=== PATIENT | female | born 1960 | race Caucasian/White ===

== ENCOUNTER 2017-03-16 08:04 | Inpatient (IN) ==
[2017-03-16] MEDS ORDERED: SODIUM CHLORIDE 0.9% 1,000 ML IV STA (08:36)
[2017-03-16] MEDS ORDERED: PANTOPRAZOLE 40 MG VIAL IV STA (08:36)
[2017-03-16 08:59] LABS: Basophils % 0.1 % (0.0-0.8); Eosinophils % 0.2 % (0.00-10.9); Hematocrit 27.5 VOL% (35.7-47.0); Hemoglobin 9.3 GM/DL (12.0-16.0); Immature Granulocytes % 0.6 %; Immature Granulocytes Absolute 0.06 #; Mean Corpuscular HGB Conc 33.8 GM/DL (32-36); Mean Corpuscular Hemoglobin 33 PG (27-34); Mean Corpuscular Volume 96.5 FL (87-102); Mean Platelet Volume 10.9 FL (9.6-12.0); Monocytes # 0.5 10*3/uL (0.11-0.8); Monocytes % 4.7 % (1.7-12.7); Neutrophils # 8.1 10*3/uL (1.4-7.4); Neutrophils % 84.4 % (38.7-73.9); Platelet Count 178 T/CUMM (130-400); Red Blood Count 2.85 MC/CUMM (3.8-5.5); White Blood Count 9.6 T/CUMM (4-12)
--- NOTE | 2017-03-16 09:12 | XRay Report ---
History: Abdominal pain Date: 03/16/2017 Study: Flat and decubitus abdomen Comparison exam: No previous There is no evidence of pneumoperitoneum. The bowel gas pattern is nonobstructive without gross mass lesion. Some scattered stool and air are noted in the normal caliber colon. There are at least 2 small less than 3 mm calcifications overlying the upper right renal shadow which could represent small renal stones. There is moderate degenerative disc narrowing with vacuum disc phenomenon at L4-L5 and L5-S1. Impression: Suspect right nephrolithiasis Degenerative disease lumbar spine No definite acute process otherwise PROCEDURE INTERPRETED AT [facility] DEPARTMENT OF RADIOLOGY Final Report Signed by: Dr. Peggy Demarco
[2017-03-16] MEDS ORDERED: PANTOPRAZOLE 40 MG VIAL IV ONE (09:21)
[2017-03-16 09:31] LABS: Alanine Aminotransferase 19 U/L (13-56); Albumin 2.9 G/DL (3.4-5.0); Alkaline Phosphatase 99 U/L (45-117); Aspartate Amino Transferase 12 U/L (0-37); Bilirubin,Total < 0.39 MG/DL (0.2-1.0); Blood Urea Nitrogen 21 MG/DL (7-18); Calcium 8.1 MG/DL (8.5-10.1); Total Protein 5.8 G/DL (6.4-8.3)
[2017-03-16 09:32] LABS: Glucose 107 MG/DL (74-106); Potassium 3.6 MMOL/L (3.5-5.1); Sodium 143 MMOL/L (136-145)
--- NOTE | 2017-03-16 09:36 | EKG Report ---
Stationary ECG Study [facility] ER Test Date: 03/16/2017 9:34:42 AM Pat Name: HARESH GRIFFIN Department: Room: Gender: F Bureau Chief: : 1960 Requested by: Noel Blackburn Order Number: [id number] Reading MD: ADRIANNE CHEW Intervals Mobile Rate: 79 P: 29 GA: 101 QRS: 33 QRSD: 86 T: -22 QT: 392 QTc: 427 Interpretive Statements SINUS RHYTHM WITH SHORT GA INTERVAL MINIMAL VOLTAGE CRITERIA FOR LVH, CONSIDER NORMAL VARIANT PROBABLE INFERIOR MYOCARDIAL INFARCTION, OF INDETERMINATE AGE Electronically Signed On 03-16-17 14:09:41 CDT by ADRIANNE CHEW [id number]
--- NOTE | 2017-03-16 09:54 | Emergency Department Note ---
Pavithra Swift Emily, am scribing for, and in the presence of, Noel Delacruz MD 08:37. Jayme Swift Phillip K, MD, personally performed the services described in this documentation, ascribed by Lurdes Arshad in my presence, and it is both accurate and complete 954 . Arrival - Arrival Chief Complaint: GI Bleed/Rectal ED Nursing Triage Note: Brought in by EMS c/o vomiting bright red blood-onset 0615 this morning. +nausea. Mode of Arrival: Stretcher Limitations: No Limitations Source: Patient, Significant other Time Seen by Provider: 03/16/17 08:12 - History of Present Illness HPI Narrative: Pt is a 57 y/o female who came to ED with c/o hematemesis trhat started at 6am this morning. Pt notes having nausea and some mid epigastric pain. Pt reports having melena about 2 days ago and emesis was bright red this morning. Pt takes Mobic of 7.5mg once daily, aspirin, and occasional ibuprofen, but denies BC powders. Pt denies hx of ulcers. PMHx of esophagus stretching in 2004. Onset (ago): hour(s) Consistency: constant Severity: moderate Severity scale (1-10): 5 Quality: other (vomiting) Date of Last Menstrual Period: menopause Allergies/Adverse Reactions: Allergies Allergy/AdvReac Type Severity Reaction Status Date / Time codeine Allergy Unknown/Unable Verified 03/16/17 08:15 to obtain Review of System - Review of System 12 point system: reviewed and no additional remarkable complaints except as stated - Review of System Constitutional: Absent: chills, fever, weakness Respiratory: Absent: respiratory distress Cardiovascular: Absent: chest pain, syncope Gastrointestinal: Present: abdominal pain (mild epigastric), nausea, hematemesis (bright red), melena Musculoskeletal: Absent: arm pain Skin: Absent: rash Neurological: Absent: headache Medical,Surgical,& Family Hx - Medical History Endocrine: History of: Dyslipidemia - Family History Family History: noncontributory - Social History Smoking Status: Never smoker Frequency of Alcohol Use: None Type of Drug Use: None Marital Status: Lives With:: Spouse Functional capacity: independent ambulation Exam Vital Signs: Vital Signs Temperature 96.7 F L 03/16/17 08:09 Pulse Rate 85 03/16/17 08:18 Respiratory Rate 27 H 09/06/17 08:18 Blood Pressure 102/65 03/16/17 08:18 O2 Sat by Pulse Oximetry 100 03/16/17 09:33 - General General appearance: alert, in no apparent distress - Head Head exam: Present: atraumatic, normocephalic - Eye Eye exam: Present: PERRL, EOMI, other (pale conjunctiva) - ENT ENT exam: Present: mucous membranes moist. Absent: mucous membranes dry - Neck Neck exam: Present: full ROM, trachea midline - Chest Chest inspection: Present: symmetric chest wall rise - Respiratory Respiratory exam: Present: normal lung sounds bilaterally. Absent: respiratory distress - Cardiovascular Cardiovascular exam: Present: regular rate, normal rhythm, normal heart sounds - Abdominal Exam Abdominal exam: Present: soft, tenderness (mid epigastric). Absent: distention , guarding, rebound - Rectal Exam Rectal exam: Present: heme (+) stool, black stool (gross melenatic stool) - Extremities Exam Extremities exam: Present: full ROM. Absent: tenderness, pedal edema - Neurological Exam Neurological exam: Present: alert, oriented X3, CN II-XII intact. Absent: motor sensory deficit - Psychiatric Psychiatric exam: Present: normal affect, normal mood - Skin Skin exam: Present: warm, dry Course Course Narrative: Patient discussed with the hospitalist. Results - Labs CBC & BMP: 03/16/17 08:48 03/16/17 08:48 Lab Results: I have reviewed the patients labs Labs: Laboratory Tests 03/16/17 08:48 WBC 9.6 RBC 2.85 L Hgb 9.3 L Hct 27.5 L Plt Count 178 Neut % (Auto) 84.4 H Lymph % (Auto) 10.0 L Neut # (Auto) 8.1 H Lymph # (Auto) 1.0 L Laboratory Tests 03/16/17 03/16/17 08:48 08:48 Sodium 143 Potassium 3.6 Chloride 112 H Carbon Dioxide 27 BUN 21 H GFR Calculation 98 BUN/Creatinine Ratio 30.00 H Glucose 107 H Calcium 8.1 L AST 12 ALT 19 Total Protein 5.8 L Albumin 2.9 L Albumin/Globulin Ratio 1.0 L Blood Type O POSITIVE Antibody Screen Negative - EKG EKG results: interpreted by MARIELLE, sinus rhythm (Possible old inferior ID) - Diagnostic Findings Procedure: Abdominal x-ray: report reviewed by me (with complete decub: Suspect right nephrolithiasis. Degenerative disease lumbar spine. No definite acute process otherwise.) Disposition Clinical Impression: Upper gastrointestinal hemorrhage, Gastritis due to nonsteroidal anti- inflammatory drug, Melena Case discussed with: patient Disposition: Still a Patient Condition: Guarded Additional Instructions: Admit to the hospitalist. Consult Dr. Demarco.
[2017-03-16] MEDS ORDERED: guaiFENesin/DM ER 600-30 MG TABLET PO PRN (10:38)
[2017-03-16] MEDS ORDERED: ONDANSETRON 4 MG/2 ML VIAL IV PRN (10:38)
[2017-03-16] MEDS ORDERED: diphenhydrAMINE CAP 25 MG CAPSULE PO PRN (10:38)
[2017-03-16] MEDS ORDERED: ACETAMINOPHEN 325 MG TABLET PO PRN (10:38)
[2017-03-16] MEDS ORDERED: PROMETHAZINE 25 MG/1 ML VIAL IM PRN (10:38)
[2017-03-16] MEDS ORDERED: DOCUSATE SODIUM 100 MG CAPSULE PO PRN (10:38)
--- NOTE | 2017-03-16 10:50 | Hospitalist History & Physical ---
<Petra Hernadez - Last Filed: 03/16/17 10:46> Assessment and Plan - Time spent with patient Time spent with patient: Greater than 30 minutes (1) Low back pain Status: Acute Assessment and plan: 57-year-old white female with history of hyperlipidemia and low back pain who takes Mobic on a regular basis admitted by the hospitalist service with upper GI bleeding and melena. Patient is stable and will be admitted to the floor with serial H&H's and monitoring of her bleeding. She will be given Protonix IV twice daily and IV fluids. Consult GI for evaluation. Will hold patient n.p.o. until GI sees. Type and screen for 2 units in case H&H continues to drop. No indication for transfusion at this point in time. Dr. Saul will see and examined patient and further recommendations to follow. Current Visit: Yes (2) Acute blood loss anemia Status: Acute Current Visit: Yes (3) Upper gastrointestinal hemorrhage Status: Acute Current Visit: Yes (4) Melena Status: Acute Current Visit: Yes History of Present Illness Chief complaint: Vomiting blood History of present illness: Ms. Hernandez is a 57 year old white female with history of low back pain and hyperlipidemia presenting to the ED with a 5 hour history of vomiting blood. Patient states for the last several days her stomach has not felt right and she started having dark tarry stools last night. She states this morning she woke up and started vomiting red blood. She is complaining of some blurry vision, mild shortness of breath, dizziness and nausea. Upon exam patient is pale, cool , and clammy with wet rag to her forehead. She is afebrile and her vital signs are stable. Her abdomen is mildly tender in the epigastric region. Her H&H is 9.3/27.5 and the rest of her labs are relatively unremarkable. Patient's family doctor is Dr. Miranda in [place] and he prescribes a cholesterol pill and Mobic that she takes regularly along with as needed ibuprofen for some chronic back pain that she has. Her surgical history includes a right bunionectomy and percutaneous renal artery dilation 10-15 years ago. After discussion with Dr. Delacruz the ED physician and Dr. Saul the admitting hospitalist, it was agreed patient would be admitted for further evaluation and treatment. Home Medications Medication Instructions Recorded Confirmed Type Meloxicam 7.5 mg PO QAM 03/16/17 03/16/17 History Pravastatin [Pravachol] 40 mg PO BEDTIME 03/16/17 03/16/17 History Allergies Allergy/AdvReac Type Severity Reaction Status Date / Time codeine Allergy Unknown/Unable Verified 03/16/17 08:15 to obtain Medical,Surgical,& Family Hx - Medical History Endocrine: History of: Dyslipidemia Musculoskeletal: History of: Back/Neck Problems - Surgical History Thoracic Surgeries: Surgical HX of;: Kidney (Renal Surgery) Orthopedic Surgeries: Surgical HX of;: Orthopedic Surgery - Family History Family History: Denies;: Family Heart Disease - Social History Smoking Status: Never smoker Frequency of Alcohol Use: None Type of Drug Use: None Marital Status: Lives With:: Spouse Functional capacity: independent ambulation 12 point system: reviewed and no additional remarkable complaints except as stated Exam - Constitutional Vitals: Period Temp Pulse Resp BP Sys/Feldman Pulse Ox Last 24 Hr 96.7 F-96.7 F 85-86 16-27 102-117/65-73 100-100 Exam: Constitutional System: No distress. No tremulousness. Skin is pale, cool and clammy Head: Normocephalic, atraumatic. Ears, Nose and Throat System: No evidence of Otitis or Mastoiditis. No epistaxis or discharge Eyes System: Pupils equal, round, and reactive. Extraocular muscles intact. Neck: Supple, without adenopathy, No jugular venous distention. No thyromegaly, neck mass, or prior surgery apparent. Respiratory System: Chest clear to auscultation. Cardiovascular System: Heart with regular rate and rhythm. No murmur. GI System: Abdomen soft, mildly tender in epigastric region. Normo active bowel sounds present. Musculoskeletal System: limbs with no pedal edema. Full distal pulses. Neurological System: No discernable sensory deficit. No aphasia Psychiatric System: Conversation is rational Results - Labs CBC & BMP: 03/16/17 08:48 03/16/17 08:48 Lab Results: I have reviewed the past 24 hour labs - EKG EKG results: sinus rhythm - Diagnostic Findings Procedure: Abdominal x-ray: report reviewed by me (Suspect right nephrolithiasis , degenerative disease lumbar spine) Quality Measures - VTE Contraindication to Pharmacological VTE Prophylaxis: Active Bleeding <Anand Saul - Last Filed: 03/16/17 12:37> History of Present Illness History of present illness: Ms. Hernandez is a 57 year old female who is being admitted to the hospital with hematemesis and melena. She has a history of meloxicam and ibuprofen use for chronic low back pain. Evaluation in the ED demonstrated her H&H to be 27.5 and 9.3. Gastroenterology has been consulted. I have interviewed the patient, examined the patient, and reviewed all the available laboratory and radiographic test results. I agree with the assessment and plans of EMILIA Padilla. Exam - Constitutional Vitals: Period Temp Pulse Resp BP Sys/Feldman Pulse Ox Last 24 Hr 96.7 F-96.7 F 73-86 16-32 102-122/65-77 100-100 Results - Labs CBC & BMP: 03/16/17 11:33 03/16/17 08:48
[2017-03-16] MEDS ORDERED: MEPERIDINE 25 MG/1 ML VIAL IV SCH (11:00)
[2017-03-16] MEDS: PANTOPRAZOLE 40 MG VIAL IV SCH ×2 (11:46→20:25)
[2017-03-16] MEDS ORDERED: MEPERIDINE 25 MG/1 ML VIAL IV PRN (11:59)
[2017-03-16] MEDS: SODIUM CHLORIDE 0.9% 1,000 ML IV SCH ×2 (12:06→20:25)
[2017-03-16 12:14] LABS: Hematocrit 28.9 VOL% (35.7-47.0); Hemoglobin 9.5 GM/DL (12.0-16.0)
--- NOTE | 2017-03-16 18:42 | Gastrointestinal Consult Note ---
Assessment and Plan (1) Upper gastrointestinal hemorrhage Status: Acute Assessment and plan: I strongly suspect this patient has hematemesis due to probable bleeding ulcer in her stomach. This may have involved a large vessel, she does not appear to be actively bleeding now and is not having any further episodes of hematemesis. I do not feel that she needs to be scoped tonight. Agree with use of Protonix on a twice daily dosing schedule until we can perform upper endoscopy and further assess her risk for rebleeding. She will need to hold off on further use of aspirin, Mobic and ibuprofen for the current time foreseeable future. We will continue monitoring her hematocrit to make sure this does not drop significantly and I will write for some transfusion parameters to give her blood if she drops below 24%. Recall that this patient is symptomatic at this level I suspect she may need blood before she is discharged home. She is still feeling weak and symptomatic getting up to the bathroom but again her vital signs do not reflect this strongly. Risks of the endoscopy were reviewed with the patient include but are not limited to: Bleeding, infection, perforation, cardiac and pulmonary compromise. She is accepting of these risks and is willing to proceed with upper endoscopy tomorrow. Because of her history of dysphagia with a likely dilator at the same time, provided this can be done safely. Current Visit: Yes (2) Dysphagia Status: Acute Assessment and plan: The patient does have a history of previous dilation and she was told that she had "a lot of scar tissue in her esophagus". We will perform upper endoscopy in order to assess this again tomorrow and we might repeat dilation as well. Current Visit: Yes (3) Melena Status: Acute Assessment and plan: Again we will be watching the patient's hematocrit and hemoglobins trend over time, parameters written to transfuse this patient if she drops below 24%. Current Visit: Yes (4) Acute blood loss anemia Status: Acute Assessment and plan: As noted above, patient started on Protonix 40 mg twice daily to help with hemostasis. Suspect a gastric ulcer but this also may be gastric cancer, Joy-Pat tear, AVMs in the stomach, gastritis, esophagitis, or duodenitis. Current Visit: Yes History of Present Illness Chief complaint: Hematemesis, decreased hematocrit to 27%, near syncope, melena History of present illness: Ms. Hernandez is a 57 year old female who has a history of taking Mobic on a routine basis (7.5 mg every morning) and the occasional ibuprofen for her back pain as well as aspirin 81 mg per day for cardio prevention who developed a bit of vertigo and black stools starting approximately 5 days ago. She felt rather weak and had some malaise on the Tuesday holiday and had noticed some increasing epigastric tenderness and burning sensation. This morning at about 1 AM she awoke with some severe nausea but decided to go back to bed and about 6:15 this morning awoke again and had to go to the bathroom with dizziness where she had multiple episodes of vomiting of bright red blood. She had a syncopal versus near syncopal event on the toilet and the ambulance was summoned to take her to [place] for evaluation. Her initial hematocrit was noted to be decreased at 27.5 with hemoglobin of 9.3 g/dL. Despite these laboratories the patient's vital signs were not tachycardic or hypotensive in the emergency room. Her primary care provider is Dr. Miranda in [place]. 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 She has never had a colonoscopy. She has had renal artery stenosis requiring dilation percutaneously some 10-15 years ago. She states that she has had a long-standing history of reflux and dysphagia with food slowing down in her distal esophagus and this required dilation that she feels might have been done by Dr. Nilam morin in 2005. There are no records available to corroborate this recollection. She is having some mild burning in the epigastric region now but is only mildly nauseous and thinks that she might be able to drink some clear liquids. Home Medications Medication Instructions Recorded Confirmed Type Meloxicam 7.5 mg PO QAM 03/16/17 03/16/17 History Pravastatin [Pravachol] 40 mg PO BEDTIME 03/16/17 03/16/17 History Allergies Allergy/AdvReac Type Severity Reaction Status Date / Time codeine Allergy Unknown/Unable Verified 03/16/17 08:15 to obtain Medical,Surgical,& Family Hx - Medical History Endocrine: History of: Dyslipidemia Gastrointestinal: History of: GERD Musculoskeletal: History of: Back/Neck Problems - Surgical History Thoracic Surgeries: Surgical HX of;: Kidney (Renal Surgery) Orthopedic Surgeries: Surgical HX of;: Orthopedic Surgery - Family History Family History: Denies;: Family Heart Disease - Social History Smoking Status: Never smoker Frequency of Alcohol Use: None Type of Drug Use: None Review of systems: Constitutional: Denies fever, chills, positive for nausea, and vomiting Eyes: Denies dry eyes, and scleral icterus HENT: Occasional headaches Cardiovascular: Denies acute chest pain and claudication Respiratory: Denies shortness of breath, wheezing, and difficulty breathing, denies cough Gastrointestinal: As noted in the HPI Genitourinary: Denies dysuria and hematuria Neurologic: Denies vision loss, and loss of sensation Musculoskeletal: She does have some difficulty with arthritis/joint swelling , joint stiffness, and muscular weakness Psychiatric: Denies depression and mahendra symptoms Heme-Lymph: Denies easy bruising, lymph node enlargement or tenderness, night sweats, excessive bleeding Allergies-immunologic: Denies pruritus and rhinorrhea Exam - Constitutional Vitals: Period Temp Pulse Resp BP Sys/Feldman Pulse Ox Last 24 Hr 96.7 F-97.2 F 73-86 16-32 95-140/65-77 100-100 General appearance: mild distress - Head Head exam: Present: normocephalic, atraumatic - Eye Eye exam: Present: EOMI Pupils: Present: LIZETTE - Respiratory Respiratory exam: Present: clear to auscultation bilaterally. Absent: rhonchi, stridor, wheezes - Cardiovascular Cardiovascular exam: Present: regular rate and rhythm - GI/Abdominal GI/Abdominal exam: Present: normal bowel sounds, tenderness (Mostly in the epigastric pain), soft. Absent: distended, rebound - Extremities Exam Extremities exam: Absent: edema - Back Exam Back exam: Present: normal inspection - Neurological Exam Neurological exam: Present: alert, oriented X3, CN II-XII intact. Absent: motor sensory deficit - Psychiatric Psychiatric exam: Present: normal affect, normal mood - Skin Skin exam: Present: warm Results - Labs CBC & BMP: 03/16/17 11:33 03/16/17 08:48 Quality Measures - VTE Contraindication to Pharmacological VTE Prophylaxis: Active Bleeding
[2017-03-16] MEDS ORDERED: SODIUM CHLORIDE 0.9% 250 ML IV PRN (18:53)
[2017-03-16] MEDS ORDERED: FUROSEMIDE 20 MG/2 ML VIAL IV PRN (18:53)
[2017-03-16 19:12] LABS: Hematocrit 25.8 VOL% (35.7-47.0); Hemoglobin 8.8 GM/DL (12.0-16.0)
[2017-03-16] MEDS: PRAVASTATIN 40 MG TABLET PO SCH (20:25)
[2017-03-16] MEDS: ACETAMINOPHEN 325 MG TABLET PO PRN (21:45)
[2017-03-17 02:23] LABS: Hematocrit 22.9 VOL% (35.7-47.0); Hemoglobin 7.7 GM/DL (12.0-16.0)
[2017-03-17 02:24] LABS: Basophils % 0.3 % (0.0-0.8); Eosinophils # 0.1 10*3/uL (0.0-0.87); Hematocrit 23.2 VOL% (35.7-47.0); Hemoglobin 7.7 GM/DL (12.0-16.0); Immature Granulocytes % 0.4 %; Immature Granulocytes Absolute 0.03 #; Lymphocytes # 2.6 10*3/uL (1.4-4.0); Lymphocytes % 35.3 % (21.3-54.2); Mean Corpuscular HGB Conc 33.2 GM/DL (32-36); Mean Corpuscular Hemoglobin 32 PG (27-34); Mean Corpuscular Volume 96.3 FL (87-102); Mean Platelet Volume 11.1 FL (9.6-12.0); Monocytes # 0.4 10*3/uL (0.11-0.8); Neutrophils # 4.2 10*3/uL (1.4-7.4); Platelet Count 160 T/CUMM (130-400); Red Blood Count 2.41 MC/CUMM (3.8-5.5); Red Cell Distribution Width 12.4 % (9.3-17.3); White Blood Count 7.3 T/CUMM (4-12)
[2017-03-17 02:55] LABS: Alanine Aminotransferase 14 U/L (13-56); Albumin 2.7 G/DL (3.4-5.0); Alkaline Phosphatase 80 U/L (45-117); Aspartate Amino Transferase 8 U/L (0-37); Bilirubin,Total < 0.39 MG/DL (0.2-1.0); Blood Urea Nitrogen 11 MG/DL (7-18); Calcium 7.9 MG/DL (8.5-10.1); Glucose 94 MG/DL (74-106); Osmolality,Calculated 290.4 MOS/KG (273-304); Potassium 3.6 MMOL/L (3.5-5.1); Sodium 147 MMOL/L (136-145); Total Protein 4.9 G/DL (6.4-8.3)
[2017-03-17] MEDS: ACETAMINOPHEN 325 MG TABLET PO PRN (04:06)
[2017-03-17] MEDS: SODIUM CHLORIDE 0.9% 1,000 ML IV SCH (04:08)
--- NOTE | 2017-03-17 07:46 | EKG Report ---
Stationary ECG Study [facility] Test Date: 03/17/2017 7:45:39 AM Pat Name: HARESH GRIFFIN Department: Room: 527 Gender: F Commodity Supervisor: CHRISTINA : 1960 Requested by: Petra Hernadez Order Number: [id number] Reading MD: ADRIANNE CHEW Intervals [place] Rate: 67 P: 52 WI: 128 QRS: 51 QRSD: 94 T: 18 QT: 406 QTc: 422 Interpretive Statements SINUS RHYTHM POSSIBLE INFERIOR MYOCARDIAL INFARCTION, PROBABLY OLD WITH POSTERIOR EXTENSION Electronically Signed On 03-17-17 18:52:01 CDT by ADRIANNE CHEW [id number]
[2017-03-17 08:09] LABS: Hematocrit 24.4 VOL% (35.7-47.0); Hemoglobin 8.2 GM/DL (12.0-16.0)
[2017-03-17] MEDS: PANTOPRAZOLE 40 MG VIAL IV SCH ×2 (08:21→20:18)
--- NOTE | 2017-03-17 09:30 | Operative Note ---
Date of procedure: 03/17/17 Pre-op diagnosis: Melena, hematemesis, decreased hematocrit to 22%. Post-op diagnosis: other (Deep erosive ulcer on lesser curvature in the antrum/ body junction with pigmented spot (Pawel class 2C)--this will need repeat upper endoscopy in 2 months for healing, the patient is advised to start Protonix twice daily until that time. She is advised to avoid NSAIDs entirely. Erosive gastritis was also seen as well as a small hiatal hernia, patient had a small Schatzki's ring at her GE junction and this was dilated to 57 U[place]bek by single pass Savary due to her dysphagia symptoms that occur intermittently.) Procedure: PROCEDURE: Esophagogastroduodenoscopy (EGD) with cold biopsy for pathology and single pass Savary dilator to 57 Uzbek REFERRING PHYSICIAN: Maurice Black MD INDICATIONS: Melena with decreased hematocrit 22% and hematemesis in a patient who takes Mobic, aspirin, and occasional ibuprofen. Some epigastric pain as well the prior H&P was reviewed and interrim changes are as noted: No change from GI consultation yesterday ENDOSCOPIST: Lew Bazan MD ENDOSCOPE: Olympus Video 100 System upper endoscope ASA CLASS: 2 EXAM: CV: regular rate and rhythm respiratory: Clear without wheezes abdominal: active bowel sounds MEDICATION: Per nursing anesthesia protocol, see their notes PROCEDURE: After discussion of the potential risks and benefits of upper endoscopy, the informed consent was obtained. The patient was then placed in the left lateral decubitus position where sedation was achieved as noted above. Esophageal intubation was performed without difficulty, and the endoscope was advanced through the esophagus, stomach and duodenum. A slow withdrawal was then performed with retroflexion in the stomach for careful inspection of the incisura angularis, fundus and cardia. The scope was then returned to a neutral position and withdrawn through the esophagus. The patient tolerated the procedure well and without complication. BIOPSIES: gastric antrum/body/ulcer margin PHOTOGRAPHS: Obtained FINDINGS: Hypopharynx and Larynx: Normal Esohagoscopy Upper and middle thirds: Normal Lower third normal Esophogastric junctions: Slight Schatzki's ring noted at the EG junction , this was dilated post procedure by single pass Savary dilator to 57 Uzbek with minimal resistance and no heme. Gastroscopy: Cardia/Fundus: 1 cm hiatal hernia noted Body: Along the lesser curvature there was a 3 cm x 1 cm deep ulceration with a single pigmented spot, the margins were biopsied to rule out malignancy but this was thought to be the source of the patient's bleeding, there was evidence of erosive gastritis around this area as well and biopsies were taken for Helicobacter pylori. It was not actively bleeding at the time of the endoscopy. Antrum and pylorus erosive gastritis, biopsied Duodenoscopy: Bulb mild erosive duodenitis Second and third portions: Normal-appearing IMPRESSION: Deep erosive ulcer on lesser curvature in the antrum/body junction with pigmented spot (Pawel class 2C)--this will need repeat upper endoscopy in 2 months for healing, the patient is advised to start Protonix twice daily until that time. She is advised to avoid NSAIDs entirely. Erosive gastritis was also seen as well as a small hiatal hernia, patient had a small Schatzki's ring at her GE junction and this was dilated to 57 U[place]bek by single pass Savary due to her dysphagia symptoms that occur intermittently. RECOMMENDATIONS: Follow up for biopsy results in 1-2 weeks by phone [phone] Continue anti-gastroesophageal reflux measures (avoid carbonated and acidic beverages, avoid eating within 2 hours of bedtime, avoid tight fitting clothing , and elevate the front bed posts 6 inches prior to sleeping. Repeat upper endoscopy in 2 months Protonix 40 mg p.o. twice daily Agree with transfusion today. The patient should be watched up on the floor for an additional day before discharge to home to look for further bleeding. We will start regular diet now Lew Bazan MD COPY TO: Maurice Black MD Anesthesia: MAC Surgeon / Physician: Lew Bazan Estimated blood loss: minimal Specimens: other (Gastric antrum/body and ulcer margin) Condition: stable Disposition: post procedure unit (G.I. Suite) Results - Labs CBC & BMP: 03/17/17 06:36 03/17/17 02:06 Discharge Plan - Discharge Medications No Action Meloxicam 7.5 mg PO QAM Pravastatin [Pravachol] 40 mg PO BEDTIME - Follow Up or Referral - Forms/Instructions
--- NOTE | 2017-03-17 09:33 | Gastrointestinal Progress Note ---
Assessment and Plan (1) Upper gastrointestinal hemorrhage Status: Acute Assessment and plan: I strongly suspect this patient has hematemesis due to probable bleeding ulcer in her stomach. This may have involved a large vessel, she does not appear to be actively bleeding now and is not having any further episodes of hematemesis. I do not feel that she needs to be scoped tonight. Agree with use of Protonix on a twice daily dosing schedule until we can perform upper endoscopy and further assess her risk for rebleeding. She will need to hold off on further use of aspirin, Mobic and ibuprofen for the current time foreseeable future. We will continue monitoring her hematocrit to make sure this does not drop significantly and I will write for some transfusion parameters to give her blood if she drops below 24%. Recall that this patient is symptomatic at this level I suspect she may need blood before she is discharged home. She is still feeling weak and symptomatic getting up to the bathroom but again her vital signs do not reflect this strongly. Risks of the endoscopy were reviewed with the patient include but are not limited to: Bleeding, infection, perforation, cardiac and pulmonary compromise. She is accepting of these risks and is willing to proceed with upper endoscopy tomorrow. Because of her history of dysphagia with a likely dilator at the same time, provided this can be done safely. 03/17/17--the findings at upper endoscopy are as follows: Deep erosive ulcer on lesser curvature in the antrum/body junction with pigmented spot (Pawel class 2C)--this will need repeat upper endoscopy in 2 months for healing, the patient is advised to start Protonix twice daily until that time. She is advised to avoid NSAIDs entirely. Erosive gastritis was also seen as well as a small hiatal hernia, patient had a small Schatzki's ring at her GE junction and this was dilated to 55 [place] by single pass Savary due to her dysphagia symptoms that occur intermittently. Current Visit: Yes (2) Dysphagia Status: Acute Assessment and plan: The patient does have a history of previous dilation and she was told that she had "a lot of scar tissue in her esophagus". We will perform upper endoscopy in order to assess this again tomorrow and we might repeat dilation as well. 03/17/17--the patient will require repeat upper endoscopy in 2 months. She was dilated today and will see how she does with this dilation. I saw Schatzki's ring but did not see any serious stricturing. Current Visit: Yes (3) Melena Status: Acute Assessment and plan: Again we will be watching the patient's hematocrit and hemoglobins trend over time, parameters written to transfuse this patient if she drops below 24%. 03/17/17--this is likely due to the gastric lesser curvature ulcer that will require repeat upper endoscopy in 2 months. We can likely accomplish the colonoscopy around that time as well for colorectal cancer screening. Current Visit: Yes (4) Acute blood loss anemia Status: Acute Assessment and plan: As noted above, patient started on Protonix 40 mg twice daily to help with hemostasis. Suspect a gastric ulcer but this also may be gastric cancer, Joy-Pat tear, AVMs in the stomach, gastritis, esophagitis, or duodenitis. 03/17/17--as noted above, gastric ulcer caused by NSAIDs plus minus Helicobacter pylori, we are waiting pathology now. Current Visit: Yes Gastroenterology - PN: Subj Interval history: No new complaints, the patient did require blood and this is transfusing now. Exam (Progress Note) - Constitutional Vitals: Period Temp Pulse Resp BP Sys/Feldman Pulse Ox Last 24 Hr 97.2 F-99 F 67-91 15-32 92-140/49-77 97-100 - Eye Eye exam: Present: EOMI - Respiratory Respiratory exam: Present: clear to auscultation bilaterally - Cardiovascular Cardiovascular exam: Present: regular rate and rhythm - GI/Abdominal GI/Abdominal exam: Present: normal bowel sounds, tenderness (Epigastric region) , soft. Absent: distended, rebound - Extremities Exam Extremities exam: Absent: edema - Neurological Exam Neurological exam: Present: alert, oriented X3, CN II-XII intact - Psychiatric Psychiatric exam: Present: normal affect, normal mood - Skin Skin exam: Present: warm Results - Labs CBC & BMP: 03/17/17 06:36 03/17/17 02:06
--- NOTE | 2017-03-17 09:38 | Anesthesia Post-Op ---
Anesthesia Post OP - Post Ansesthetic Evaluation Patient seen in post op: Yes Resp: within normal limits CV: within normal limits Mental: within normal limits Temp: within normal limits [id number]: within normal limits Nausea and Vomiting: within normal limits Pain: within normal limits
[2017-03-17] MEDS ORDERED: PROPOFOL 200 MG/20 ML VIAL IV ONE (11:00)
[2017-03-17] MEDS ORDERED: LIDOCAINE 1% 5 ML VIAL ONE (11:00)
[2017-03-17] MEDS ORDERED: PHENYLEPHRINE 1 MG/10 ML SYRINGE IV ONE (11:00)
--- NOTE | 2017-03-17 14:50 | Hospitalist Progress Note ---
Assessment and Plan - Time spent with patient Time spent with patient: Less than 30 minutes (1) Low back pain Status: Acute Assessment and plan: 57-year-old white female with history of hyperlipidemia and low back pain who takes Mobic on a regular basis admitted by the hospitalist service with upper GI bleeding and melena. Patient is stable and will be admitted to the floor with serial H&H's and monitoring of her bleeding. She will be given Protonix IV twice daily and IV fluids. Consult GI for evaluation. Will hold patient n.p.o. until GI sees. Type and screen for 2 units in case H&H continues to drop. No indication for transfusion at this point in time. Dr. Saul will see and examined patient and further recommendations to follow. 03/17/2017 patient now status post EGD by Dr. Bazan where he found a deep erosive ulcer, erosive gastritis, small hiatal hernia, and a small Schatzki's ring at the GE junction. He is recommending repeat upper endoscopy in 2 months to check for healing of the ulcer and Protonix twice daily until that time. Patient is to avoid all NSAIDs. He also dilated her esophagus due to her dysphagia symptoms. Will hold patient today for for repeat H&H in the morning to make sure she has no further bleeding. She will need to follow-up with Dr. Bazan in 2 months as well for colonoscopy for colorectal cancer screening. Patient is afebrile vital signs are stable. H&H is stable at 8.2/24.4. Home tomorrow if no further bleeding. Dr. Chaparro to see and examine patient and further recommendations to follow. Current Visit: Yes (2) Acute blood loss anemia Status: Acute Current Visit: Yes (3) Upper gastrointestinal hemorrhage Status: Acute Current Visit: Yes (4) Melena Status: Acute Current Visit: Yes Hospitalist: Subjective Interval history: Patient now status post EGD and feeling better. She has had no further bleeding. She tolerated a diet and is ambulating in the room. Exam - Constitutional Vitals: Period Temp Pulse Resp BP Sys/Feldman Pulse Ox Last 24 Hr 97.2 F-99 F 60-91 13-20 92-141/49-87 96-100 Exam: 57-year-old white female, no acute distress, alert and oriented Chest clear CV regular rate and rhythm Abdomen soft nontender Extremities no edema Results - Labs CBC & BMP: 03/17/17 06:36 03/17/17 02:06 Lab Results: I have reviewed the past 24 hour labs Quality Measures - VTE Contraindication to Pharmacological VTE Prophylaxis: Active Bleeding Specialty Discharge - Follow Up or Referrals Follow up with: Lew Bazan MD [Physician] - (Pt needs outpatient EGD set up. 2 months. Please schedule before May 26.(patient will be out of state on a trip from -))
[2017-03-17] MEDS: DEXTROSE 5% NACL 0.45% 1,000 ML IV SCH (15:15)
[2017-03-17 20:09] LABS: Hematocrit 31.7 VOL% (35.7-47.0)
[2017-03-17] MEDS: PRAVASTATIN 40 MG TABLET PO SCH (20:18)
[2017-03-18] MEDS: DEXTROSE 5% NACL 0.45% 1,000 ML IV SCH (04:35)
[2017-03-18 06:48] LABS: Hematocrit 31.6 VOL% (35.7-47.0); Hemoglobin 11.1 GM/DL (12.0-16.0)
[2017-03-18] MEDS: PANTOPRAZOLE 40 MG VIAL IV SCH (08:21)
--- NOTE | 2017-03-18 09:35 | Discharge Summary ---
Hospital Course - Hospital Course Hospital Course: 57-year-old white female with history of hyperlipidemia and low back pain who takes Mobic on a regular basis was admitted by the hospitalist service on 2016 with upper GI bleeding and melena. Patient was admitted to the floor with serial H&H's and monitoring of her bleeding. Dr. Bazan from GI was consulted. He performed an EGD on 03/17/2017 where he found a deep erosive ulcer on the lesser curvature in the antrum/body junction with a pigmented spot. He will need to repeat an upper endoscopy in 2 months for healing. Advised the patient to take Protonix twice daily until that time, avoid NSAIDs entirely, and use GERD protocol. He also found some erosive gastritis and a small hiatal hernia. She also had a small Schatzki's ring at her GE junction that was dilated due to her dysphagia symptoms. Patient did receive 1 unit of blood and patient's H& H is stable and slowly climbing and there has been no further bleeding. She feels much better and she is tolerating a diet with no abdominal pain. She will be discharged home with a 2 month follow-up with Dr. Bazan and a 2 week follow-up with her primary care physician Dr. Miranda in [place]. Complete discharge instructions were given to the patient and her in the room. Care coordination, chart review, and completed discharge paperwork took approximately 35 minutes. - Time spent with patient Time with patient DS: Greater than 30 minutes Diagnosis - Discharge Diagnosis (1) Low back pain Status: Chronic (2) Acute blood loss anemia Status: Resolved (3) Upper gastrointestinal hemorrhage Status: Resolved (4) Melena Status: Resolved Specialty Discharge - Follow Up or Referrals Follow up with: Lew Bazan MD [Physician] - (Pt needs outpatient EGD set up. 2 months. Please schedule before May 26.(patient will be out of state on a trip from )) Discharge Plan - Discharge Data Disposition: Disch To Home/Self Care Condition at Discharge: Stable Discharge Diet: advance to your usual diet Activity: resume usual activities as tolerated Driving: no restrictions Contact your physician if you experience:: Nausea/Vomiting, Bleeding - Discharge Medications New Acetaminophen Tab [Tylenol Tab] 650 mg PO Q4H PRN tablet PRN Reason: Fever, Headache, Mild Pain Acetaminophen Tab [Tylenol Tab] 325 mg PO Q4H PRN tablet PRN Reason: fever, headache/body aches Pantoprazole Tab [Protonix Tab] 40 mg PO BID #120 tablet Continue Pravastatin [Pravachol] 40 mg PO BEDTIME Discontinued Meloxicam 7.5 mg PO QAM - Follow Up or Referral Follow Up: Lew Bazan MD [Physician] - (Pt needs outpatient EGD set up. 2 months. Please schedule before May 26.(patient will be out of state on a trip from )) hayder goins [Other] - 2 Weeks (with H&H) - Forms/Instructions Additional Discharge Instructions: no NSAIDs ever Exam - Constitutional Vitals: Period Temp Pulse Resp BP Sys/Feldman Pulse Ox Last 24 Hr 97.6 F-99.3 F 60-74 13-20 106-133/64-78 96-100 Exam: 57-year-old white female, no acute distress, alert and oriented Chest clear CV regular rate and rhythm Abdomen soft and nontender Extremities no edema Discharge Results Labs on day of discharge: Labs from last 24 hours 03/18/17 03/17/17 03/17/17 06:33 18:59 02:39 Hgb 11.1 L 11.0 L D Hct 31.6 L 31.7 L Blood Type Cancelled Antibody Screen Cancelled Crossmatch See Detail Blood Bank Comment Cancelled DS: Provider Date of admission: 03/16/17 10:07 Primary care physician: . No PCP Attending physician on admission: Anand Saul Consults: 03/16/17 10:37 Consult to Physician [CONS] Routine Comment: shauna hasnt seen GI in 11 years Consulting Provider: Lew Bazan When should Consulting Provider be notified: Now Consult to Specialist Group: Gastroenterology Person Notified: ADELINE FAN Date Notified: 03/16/17 Time Notified: 11:56 03/16/17 18:41 Consult to Anesthesiology [CONS] Routine Consulting Provider: Reason for Anesthesiology: Pre-op Clearance Discharging clinician: EMILIA Jones Expected date of discharge: 03/18/17
--- NOTE | 2017-03-18 11:24 | Pathology Report from [facility] ---
[facility] ACCESSION # : [id number] PATIENT NAME : Fifi Hernandez ORDERING DR : Lew Bazan MD CLINICAL HX: GI Bleed POST-OP DX: Erosive gastritis and gastric ulcer SPECIMEN INFO: Erosive gastritis - Gastric biopsy GROSS DESCRIPTION: The specimen is received in formalin labeled with the patients name and consists of an aggregate of pink-espinal mucosal tissue measuring 0.8 cm x up to 0.5 cm. Submitted in one cassette. DIAGNOSIS FOR FIFI HERNANDEZ: GASTRIC BIOPSIES: Chronic antral gastritis with superficial erosion. Special stain POSITIVE for H. pylori. COLLECTED DATE: 03/17/2017 [facility] REPORT DATE: 03/18/2017 ELECTRONICALLY SIGNED BY: Rivas Mcduffie M.D. 03/18/2017 - 10:34:12 [facility]
[2017-03-18 12:53] VITALS: BP 124/73
== END 2017-03-18 12:55 | disposition home or self-care (01) | DRG 378 ==
LOC: EDBD → EDUNIT# → N.ED 08:04 → N.EDINP 10:07 → SUATTDRO 10:07 → N.5E 10:56
PROVIDERS: ATTEND Hospitalist